=== PATIENT | female | born 1945 | race Caucasian/White ===

== ENCOUNTER 2022-05-10 16:45 | Outpatient (RCR) | payer MEDICARE, OTHER, SELFPAY | END 2022-08-02 11:24 | disposition home or self-care (01) | PROVIDERS: PCP Physician Assistant Medical; Visit Provider Physician Assistant Medical | DX: M54.2 Cervicalgia (principal); M25.551 Pain in right hip; Z51.89 Encounter for other specified aftercare | CPT/HCPCS: 97110; 97112; 97116; 97140; 97161 ==

== ENCOUNTER 2023-03-21 12:38 | Outpatient (CLI) | payer MEDICARE, SELFPAY ==
--- NOTE | 2023-03-21 13:00 | MR_ITS ---
[facility] [address] [facility] [address] Phone:?[phone] Fax:?[phone] Referring Physician Information: Agus Dsouza M.D. [address] [facility] [address] Phone:?[phone] Fax:?[phone] Patient:?Myrtle Beyer D.O.B:?1945 Sex:?Female Phone:?[phone] [facility] MRN:?[id number] Exam Date:?03/21/2023 EXAM: MRI of the RIGHT KNEE, without contrast CLINICAL: Right knee pain. COMPARISONS: X-rays dated 04/28/2020. TECHNICAL: Multiplanar multisequence MRI of the right knee was obtained. SEDATION: None. CONTRAST: None. FINDINGS: Ligaments: ACL: Intact and unremarkable. PCL: Intact and unremarkable. MCL: Intact and unremarkable. LCL: Intact and unremarkable. Posterolateral corner: There is mild partial tearing of the distal biceps femoris tendon on axial series 4 image 23-25. Popliteus, iliotibial band, and the popliteofibular ligament appear intact. Posteromedial corner: Semimembranosus, pes anserine tendons and posterior oblique ligament appear intact. Extensor mechanism: Patellar tendon: Intact, without tendinopathy. Quadriceps tendon: Intact, without tendinopathy. Retinacula: Medial and lateral retinacula are intact. Fat pads: Unremarkable infrapatellar Hoffa's, quadriceps and prefemoral fat pads. Patellofemoral joint: Patella: High-grade near full-thickness to full-thickness chondral loss involves the medial patellar facet extending into the patellar median ridge with minimal underlying subchondral reactive edema. There is chondral heterogeneity and fissuring involving the lateral facet with mild subchondral edema/cystic change involving the inferior lateral patellar facet. Trochlea: High-grade/full-thickness chondral loss involves the far peripheral medial trochlea on sagittal series 6 images 19-20. Medial compartment: Medial meniscus: No convincing discrete meniscal tear or displacement. Medial cartilage: Segment of full-thickness chondral loss involves the weightbearing medial femoral condyle measures approximately 9 mm in AP dimension on sagittal series 6 image 22. Grade 2 chondral thinning involves the medial tibial plateau. Lateral compartment: Lateral meniscus: There is complex tearing throughout the body segment extending into the posterior horn and also into the anterior horn as seen on sagittal series 6 image 7-13 and coronal series 8 image 16-22. There is mild superior displacement of torn meniscal tissue along the body segment. Mild ill-defined degenerative fraying/tearing involves the posterior root fibers on sagittal series 6 images 14-15. Lateral cartilage: Full-thickness chondral loss involves the lateral tibial plateau as well as the posterior weightbearing extending into the posterior nonweightbearing lateral femoral condyle with mild underlying subchondral reactive edema. High-grade/full-thickness chondral loss also involves the superior posterior nonweightbearing lateral femoral condyle. Knee joint: Effusion: Small to moderate partially visualized right knee effusion. Intra-articular bodies:?No convincing bodies identified. Popliteal cyst: None. Bones: No suspicious bone marrow signal alteration or fracture line. Scattered degenerative peripheral marginal spurring is seen to involve all 3 compartments of the knee. IMPRESSION: 1. Tearing of the lateral meniscus as above, with mild superior displacement of torn meniscal tissue along the body segment. 2. High-grade chondral loss involving all 3 compartments of the knee as above. 3. Mild partial tearing of the distal biceps femoris tendon. 4. Small to moderate partially visualized joint effusion. [facility] Electronically signed on 03/22/2023 10:36:00 AM by Bruno Arroyo D.O.
== END 2023-03-21 12:39 | disposition home or self-care (01) ==
PROVIDERS: PCP Physician Assistant Medical; Visit Provider Family Medicine
DX: M25.561 Pain in right knee (principal); S83.281A Other tear of lateral meniscus, current injury, right knee, initial encounter; M25.461 Effusion, right knee; S86.811A Strain of other muscle(s) and tendon(s) at lower leg level, right leg, initial encounter
CPT/HCPCS: 73721

== ENCOUNTER 2024-05-22 16:27 | Emergency (ER) | payer MEDICARE, SELFPAY ==
[2024-05-22 16:33] VITALS: BP 147/82; PULSE 79; RESP 18; TEMP 36.8; O2SAT 96; BMI 29.2
--- NOTE | 2024-05-22 17:04 | ED.GENADULT ---
HPI - General Adult General Date Seen: 05/22/24 Chief complaint: Skin/Abscess/Foreign Body Stated complaint: rash on right leg Time Seen by Provider: 05/22/24 16:38 Source: patient, RN notes reviewed and old records reviewed Mode of arrival: ambulatory Limitations: no limitations History of Present Illness HPI narrative: Patient is a 79-year-old woman who noted small area of rash on the back of her right calf today. It was kind of itchy, she reached back to scratch it and then noted that there were some purple bumps. She does take Plavix, she had a cardiac stent placed in December of this year. She denies any other areas of rash, she has not had any bleeding gums, blood in her urine or stool. She has had a couple of nose bleeds which she has gotten stopped. Related Data Home Medications ?Medication ?Instructions ?Recorded ?Confirmed budesonide 3 mg 3 mg PO DAILY 05/22/24 05/22/24 capsule,delayed,extended release clopidogrel 75 mg tablet 75 mg PO DAILY 05/22/24 05/22/24 escitalopram oxalate 10 mg tablet 10 mg PO DAILY 05/22/24 05/22/24 zolpidem 5 mg tablet 5 mg PO QPM PRN 05/22/24 05/22/24 Allergies Allergy/AdvReac Type Severity Reaction Status Date / Time nitrofurantoin Allergy Severe Hives Verified 05/22/24 16:33 [From Macrobid] nickel AdvReac Intermediate Verified 05/22/24 16:33 Review of Systems Status of ROS: Reports: 6 or more systems reviewed and unremarkable except as noted in History and below Exam Narrative: Exam Narrative: Vital signs reviewed In general, alert, well-appearing woman. ENT: Oropharynx is normal. Nares clear. Extremities: On the right posterolateral calf she has a well-defined area approximately 5 cm in diameter of slightly abraded skin and then purpuric lesions scattered in that area. There is no other surrounding erythema or edema. Skin: Skin is otherwise entirely normal, no purpura or petechiae, no significant bruising and no other rash. Const: Vital Signs, click to edit/add: Vital Signs - 24 hr 05/22/24 16:33 Temperature 98.2 F Pulse Rate [Pulse Oximeter] 79 Respiratory Rate 18 Blood Pressure [Ri ght Upper Arm] 147/82 H Pulse Oximetry 96 Oxygen Delivery Me thod Room Air Documenting provider has reviewed patient's vital signs: yes Course Course ED Course: Discussed with her that the very well circumscribed and localized nature of this makes it look to me as if it is posttraumatic, that she scraped her bump this area and due to the Plavix had a little bit of a purpuric reaction. I do not see anything that would suggest more systemic platelet dysfunction. At this time, I think she should continue her Plavix, if this becomes more diffuse or she has other signs of bleeding potentially related to platelet dysfunction, she should return to the emergency department. She is comfortable with that plan. Vital Signs Vital signs: Initial Vital Signs Temperature 98.2 F 05/22/24 16:33 Temperature Source Temporal Artery Scan 05/22/24 16:33 Pulse Rate 79 05/22/24 16:33 Respiratory Rate 18 05/22/24 16:33 Blood Pressure 147/82 H 05/22/24 16:33 Blood Pressure Mean 103 05/22/24 16:33 Blood Pressure Position Sitting 05/22/24 16:33 Pulse Oximetry 96 05/22/24 16:33 Oxygen Delivery Method Room Air 05/22/24 16:33 Vital Signs Temperature 98.2 F 05/22/24 16:33 Pulse Rate 79 05/22/24 16:33 Respiratory Rate 18 05/22/24 16:33 Blood Pressure 147/82 H 05/22/24 16:33 Pulse Oximetry 96 05/22/24 16:33 Oxygen Delivery Method Room Air 05/22/24 16:33 Temperature 98.2 F 05/22/24 16:33 Pulse Rate 79 05/22/24 16:33 Respiratory Rate 18 05/22/24 16:33 Blood Pressure 147/82 H 05/22/24 16:33 Pulse Oximetry 96 05/22/24 16:33 Oxygen Delivery Method Room Air 05/22/24 16:33 Discharge Plan Discharge Clinical Impression: Purpura of skin caused by mechanical force Patient Disposition: Home, Self-Care Condition: Stable Instructions: Purpura (ED) Additional Instructions: At this time, the very localize appearance of this is not worrisome to me. This looks as if it was probably caused by minor trauma to the area. If however you note a similar rash spreading to other areas of the body, or you develop other areas of bleeding, such as blood in your urine or stool, gums etcetera, we should see you back. Otherwise, I would anticipate this will gradually resolve over the next few weeks. Prescriptions: No Action clopidogrel 75 mg tablet 75 mg PO DAILY zolpidem 5 mg tablet 5 mg PO QPM PRN budesonide 3 mg capsule,delayed,extend.release 3 mg PO DAILY escitalopram oxalate 10 mg tablet 10 mg PO DAILY Follow Up/Referrals: Doreen Pabon PA-C [Primary Care Provider] - Stand Alone Forms: [employer] Info Instructions
== END 2024-05-22 17:30 | disposition home or self-care (01) ==
LOC: ED 17:28
PROVIDERS: Emergency Provider Emergency Medicine; PCP Physician Assistant Medical
DX: D69.2 Other nonthrombocytopenic purpura (principal)
CPT/HCPCS: 99283; 99284

== ENCOUNTER 2024-05-31 10:21 | Emergency (ER) | payer MEDICARE, SELFPAY ==
[2024-05-31 10:27] VITALS: BP 162/90; PULSE 69; RESP 18; TEMP 36.6; O2SAT 94; BMI 29.2
--- NOTE | 2024-05-31 11:04 | ED.EPISTAXIS ---
History of Present Illness General Date Seen: 05/31/24 Chief Complaint: Epistaxis/Nosebleed Stated Complaint: nose bleed, taking blood thinners Time Seen by Provider: 05/31/24 10:34 Source: patient Mode of arrival: ambulatory Limitations: no limitations History of Present Illness HPI Narrative: Patient is a 79-year-old female presenting to emergency department for a nosebleed. She states started about 07:00 would not go away. She is having issues with nosebleeds since she was started on Plavix back in December for cardiac stents. She states she just finished Plavix last night there is no on a daily baby aspirin. Has had nosebleeds or frequently in the past week and a half. Believes the bleeding is also coming from the left nares. Denies weakness, numbness, lightheadedness, dizziness. No other concerns noted Related Data Home Medications ?Medication ?Instructions ?Recorded ?Confirmed budesonide 3 mg 3 mg PO DAILY 05/22/24 05/22/24 capsule,delayed,extended release clopidogrel 75 mg tablet 75 mg PO DAILY 05/22/24 05/22/24 escitalopram oxalate 10 mg tablet 10 mg PO DAILY 05/22/24 05/22/24 zolpidem 5 mg tablet 5 mg PO QPM PRN 05/22/24 05/22/24 Allergies Allergy/AdvReac Type Severity Reaction Status Date / Time nitrofurantoin Allergy Severe Hives Verified 05/22/24 16:33 [From Macrobid] nickel AdvReac Intermediate Verified 05/22/24 16:33 Review of Systems Narrative: Pertinent systems reviewed and were negative unless stated in HPI PFSH PFSH Social History Smoking Status: Former smoker What tobacco products do you use: cigarettes Do you use any of these nicotine containing products: None Second hand tobacco smoke exposure: No How often do you have a drink containing alcohol: never AUDIT-C Alcohol total score: 0 Non-prescribed substance use: denies use service: No Exam Narrative: Exam Narrative: Const: Well-nourished, Well-developed, in no distress Eyes: PERRL, no conjunctival injection, and symmetrical lids HENT: Atraumatic external nose and ears. Moist mucous membranes. Parent anterior nose bleed from left nares MSK:Extremities w/o deformity, Normal Active ROM Skin: Warm, Dry. No rashes or lesions. Neuro: Normal Muscle tone, No focal neurological deficits. Psych: Awake, Alert, & Oriented x3. Appropriate mood and affect. Const: Vital Signs, click to edit/add: Vital Signs - 24 hr 05/31/24 10:27 Temperature 97.9 F Pulse Rate [Pulse Oximeter] 69 Respiratory Rate 18 Blood Pressure [Le ft Forearm] 162/90 H Pulse Oximetry 94 Oxygen Delivery Me thod Room Air Course Vital Signs Vital signs: Initial Vital Signs Temperature 97.9 F 05/31/24 10:27 Temperature Source Temporal Artery Scan 05/31/24 10:27 Pulse Rate 69 05/31/24 10:27 Pulse Rhythm Regular 05/31/24 10:27 Respiratory Rate 18 05/31/24 10:27 Blood Pressure 162/90 H 05/31/24 10:27 Blood Pressure Mean 114 H 05/31/24 10:27 Blood Pressure Position Sitting 05/31/24 10:27 Pulse Oximetry 94 05/31/24 10:27 Oxygen Delivery Method Room Air 05/31/24 10:27 Vital Signs Temperature 97.9 F 05/31/24 10:27 Pulse Rate 69 05/31/24 10:27 Respiratory Rate 18 05/31/24 10:27 Blood Pressure 162/90 H 05/31/24 10:27 Pulse Oximetry 94 05/31/24 10:27 Oxygen Delivery Method Room Air 05/31/24 10:27 Temperature 97.9 F 05/31/24 10:27 Pulse Rate 69 05/31/24 10:27 Respiratory Rate 18 05/31/24 10:27 Blood Pressure 162/90 H 05/31/24 10:27 Pulse Oximetry 94 05/31/24 10:27 Oxygen Delivery Method Room Air 05/31/24 10:27 Medications Administered Medications: Discontinued Medications Generic Name Dose Route Start Last Admin Trade Name Freq PRN Reason Stop Dose Admin Oxymetazoline HCl 1 spray 05/31/24 11:00 05/31/24 11:42 Oxymetazoline 0.05% Nasal [place] NOSTRIL-B 05/31/24 11:01 1 spray ONCE ONE Administration MDM - Epistaxis MDM Narrative Medical decision making narrative: Patient is a 79-year-old female presenting for nose bleed. Will try direct pressure. Started to have the patient blow her nose to expel all clots. Then used Afrin and placed direct pressure. Will keep her like this for 20 minutes and will is re-evaluated. The bleeding has stopped in after watching her for another 20 minute she states she feels good and wants to go. I am okay with this plan. I did give her the Afrin in the nose clamp to go home with and explained to her how to prevent further nose bleeds. On further questioning her states that the patient does wipe the inside of her nose rather aggressively with clean axis and this is likely the cause of her nose bleeds. Patient states she will stop doing it. Discharge Plan Discharge Clinical Impression: Epistaxis Patient Disposition: Home, Self-Care Condition: Improved Instructions: Nosebleed (ED) Additional Instructions: If you develop another nose bleed forcefully blow out all clots from your nose and then put 1 squirt of Afrin in the nostril followed by clamp the nose and keeping head tilted forward for about 20 minutes. If you continue to have frequent nosebleeds I recommend following up with ENT. Also recommend not rubbing the anterior portion of the in her nose as that is where the bleeding is coming from. Prescriptions: No Action clopidogrel 75 mg tablet 75 mg PO DAILY zolpidem 5 mg tablet 5 mg PO QPM PRN budesonide 3 mg capsule,delayed,extend.release 3 mg PO DAILY escitalopram oxalate 10 mg tablet 10 mg PO DAILY Follow Up/Referrals: Doreen Pabon PA-C [Primary Care Provider] - Stand Alone Forms: [employer] Info Instructions
[2024-05-31] MEDS: OXYMETAZOLINE 0.05% NASAL SPRAY 1 SPRAY NOSTRIL-B (11:42)
[2024-05-31 11:57] VITALS: BP 162/90; PULSE 69; RESP 18; TEMP 36.6
== END 2024-05-31 11:58 | disposition home or self-care (01) ==
PROVIDERS: Emergency Provider Student in an Organized Health Care Education/Training Program; PCP Physician Assistant Medical
DX: R04.0 Epistaxis (principal)
CPT/HCPCS: 99282; 99283; A9270